=== PATIENT | male | born 1990 | race Caucasian/White ===

== ENCOUNTER → 2021-09-01 07:43 | Outpatient (CLI) | payer OTHER, SELFPAY ==
--- NOTE | 2021-09-01 | DI.MRI.S_ITS ---
PROCEDURE: MR KNEE LT WO CON INDICATIONS: LEFT KNEE PAIN TECHNIQUE: Noncontrast sagittal PD fast spin echo and T2 fast spin echo with fat saturation, sagittal 3-D FLASH with fat saturation; coronal T1 spin echo and PD fast spin echo with fat saturation, and axial PD fast spin echo with fat saturation through the knee. COMPARISON: None. FINDINGS: Image quality: Excellent. Menisci: There is a ramp tear of the peripheral aspect of the posterior horn of the medial meniscus. A horizontal tear is present in the anterior horn of the lateral meniscus. The free edge of the body of the lateral meniscus appears truncated. Suspect a radial tear of the posterior horn of the lateral meniscus. The meniscal root ligaments appear intact. Cruciate ligaments: The anterior and posterior cruciate ligaments appear intact. Medial structures: The medial collateral ligament appears intact. The semimembranosus tendon insertions and meniscocapsular junction appear intact. Visualized portions of the pes anserinus tendons appear normal. No abnormal bursal fluid. Lateral structures: The lateral collateral ligament and the biceps femoris tendon appear intact. The popliteus tendon appears normal. Iliotibial band appears normal. Anterior structures: The quadriceps and patellar tendons appear intact. Patellar alignment is normal. No femoral trochlear dysplasia or ventral trochlear prominence. No edema in the infrapatellar fat pad. Bones and cartilage: No bone marrow contusions or fractures. The cartilage of the medial and lateral femorotibial compartments, as well as the patellofemoral compartment, appears normal in thickness. Joint space: There small knee joint effusion. There is a tiny Hughes's cyst. Normal appearing synovial plicae are incidentally noted. IMPRESSION: 1. Ramp tear of the posterior horn of the medial meniscus. 2. Horizontal tear of the anterior horn of the lateral meniscus. The body of the lateral meniscus appears truncated. Suspect a radial tear of the posterior horn of the lateral meniscus. 3. Small knee joint effusion. 4. A tiny bakers cyst. Dictated by: Paxton Alfaro M.D. on 09/01/2021 at 11:24 Approved by: Paxton Alfaro M.D. on 09/01/2021 at 11:35
== END ==
PROVIDERS: PCP Physician Assistant; Referring Provider Student in an Organized Health Care Education/Training Program; Visit Provider Student in an Organized Health Care Education/Training Program
DX: S83.242A Other tear of medial meniscus, current injury, left knee, initial encounter (principal); S83.282A Other tear of lateral meniscus, current injury, left knee, initial encounter; M25.462 Effusion, left knee; M25.562 Pain in left knee
CPT/HCPCS: 73721

== ENCOUNTER → 2022-02-15 15:11 | Outpatient (CLI) | payer OTHER, SELFPAY ==
--- NOTE | 2022-02-15 | DI.MRI.S_ITS ---
PROCEDURE: MR TMJ WO CON INDICATIONS: Jaw pain TECHNIQUE: Axial T1 spin echo, coronal and sagittal PD fast spin echo through the temporomandibular joints, in both the closed- and open-mouth positions. COMPARISON: None. FINDINGS: Image quality: Excellent. Right: Joint is normally aligned on closed and open-mouth positioning. Articular disk demonstrates normal location and morphology. No bony erosions or osteophytes. Left: Joint is normally aligned on closed positioning. The left mandibular condyle translates anterior of the articular eminence in the open-mouth position. Articular disk demonstrates normal location and morphology. No bony erosions or osteophytes. IMPRESSION: Left TMJ hypermobility/subluxation in the open-mouth position. Please correlate with clinical findings. Right TMJ normal in appearance. Dictated by: Elena Avery MD, PhD on 02/15/2022 at 16:25 Approved by: Elena Avery MD, PhD on 02/15/2022 at 16:30
== END ==
PROVIDERS: PCP Physician Assistant; Referring Provider Dentist Oral and Maxillofacial Surgery; Visit Provider Dentist Oral and Maxillofacial Surgery
DX: M26.629 Arthralgia of temporomandibular joint, unspecified side (principal); R68.84 Jaw pain
CPT/HCPCS: 70336